=== PATIENT | female | born 1970 | race Caucasian/White ===

== ENCOUNTER 2022-09-21 19:27 | Emergency (ER) | payer BC, SELFPAY ==
[2022-09-21 19:28] VITALS: BP 170/92; PULSE 61; RESP 18; TEMP 36.4; O2SAT 100; BMI 24.7
--- NOTE | 2022-09-21 22:13 | CT_ITS ---
INDICATION: RIGHT flank pain EXAMINATION: CT ABDOMEN AND PELVIS WITHOUT CONTRAST TECHNIQUE: Helically acquired images were obtained of the abdomen and pelvis without oral or IV contrast. A radiation dose optimization technique was used for this scan. IV Contrast dosage and agent: None. Oral contrast: None. COMPARISON: None. FINDINGS: LOWER CHEST: Lung bases are clear. No cardiomegaly. Small pericardial effusion. LIVER: Homogeneous. No focal mass. GALLBLADDER AND BILIARY TREE: No calcified gallstones. No gallbladder distension or wall edema. No intra- or extrahepatic biliary ductal dilation. PANCREAS: No focal cystic or solid mass. SPLEEN: Normal size without focal cystic or solid mass. ADRENAL GLANDS: No nodules. KIDNEYS AND URETERS: Normal renal size and position. No hydronephrosis. No nephrolithiasis. No abnormal perirenal fluid stranding. No ureteral stone identified. PERITONEUM: No ascites or free air. No other fluid collection. BOWEL: Small hiatal hernia associated with gastric sleeve surgery. No bowel obstruction. Large degree of retained stool throughout the colon. No rectal distention. No bowel wall thickening or focal inflammatory changes. Normal appendix. LYMPH NODES: No enlarged mesenteric or retroperitoneal lymph nodes. VESSELS: Aorta is non-dilated. Scattered calcified mural plaque. URINARY BLADDER: Unremarkable. No gas or stone. REPRODUCTIVE ORGANS: No pelvic masses. ABDOMINAL WALL: No discrete abdominal or pelvic wall hernia. BONES: No lytic or blastic abnormality. Mild lumbar spine degenerative disc disease changes. No acute lumbar spine or pelvic osseous injury. CT/Abdomen/Pelvis without Cont IMPRESSION: No appendicitis. Postoperative changes of the bowel. Correlate for constipation. Small pericardial effusion. Electronically Signed: Joni Prakash MD at 22:56 EDT ,
--- NOTE | 2022-09-21 22:22 | EX.ED.DYSGE1 ---
HPI History of Present Illness Chief Complaint: Flank Pain Informant: patient Onset/Context/Timing Onset: Days Current Severity: Mild Maximum Severity: Moderate Narrative Narrative: Patient presents with 4-day history of right flank pain. She points to the right mid abdomen and describing her area of constant pain and states that will occasionally radiate around to the right CVA region. She denies urinary symptoms. No nausea or vomiting. No change in the pain with food. She was seen by her PCP today and had a urine in the office that was negative. PFSH PFSH Medical History Depression Hypertension Home Medications escitalopram oxalate 20 mg tablet 10 mg PO DAILY 09/21/22 [History Last Taken Unknown] lisinopril 30 mg tablet 15 mg PO DAILY 09/21/22 [History Last Taken Unknown] Allergy/AdvReac Type Severity Reaction Status Date / Time Opioids - Morphine Analogues Allergy Intermediate unknown Verified 09/21/22 19:29 Penicillins Allergy Intermediate unknown Verified 09/21/22 19:29 Surgical History H/O gastric sleeve H/O: hysterectomy Social History Smoking Status: Never smoker ROS ROS ED Constitutional Constitutional ED: Denies chills or fever(s) Eyes Eyes: Denies change in vision or discharge from eye(s) ENT ENT ED: Denies discharge from eye(s), rhinorrhea or sore throat Cardiovascular Cardiovascular: Denies chest pain or palpitations Respiratory/Chest Respiratory/Chest: Denies cough or dyspnea Gastrointestinal Gastrointestinal: Reports abdominal pain; Denies diarrhea, nausea or vomiting Genitourinary Genitourinary ED: Denies difficulty urinating or dysuria Musculoskeletal Musculoskeletal: Reports back pain; Denies extremity pain Integumentary Denies Abrasions or rash Neurologic Neurologic: Denies headache(s) or weakness Psychiatric Psychiatric: Denies anxiety or depression Allergic/Immunologic Allergic/Immunologic ED: Denies lip swelling or urticaria EXAM Physical Exam Const Vital Signs: 09/21/22 19:28 Temperature 97.5 F L Temperature Source Temporal Pulse Rate 61 Respiratory Rate 18 Blood Pressure 170/92 H Blood Pressure Mean 118 Pulse Ox 100 Oxygen Delivery Method Room Air Positive well nourished and well developed General Appearance ED: well developed HEENT Reports normocephalic and head/scalp atraumatic Eyes PERRL and EOMs intact bilaterally Neck supple Chest Wall inspection of chest normal and palpation of chest normal Resp normal respiratory effort and clear to auscultation bilaterally Cardio regular rate and regular rhythm GI GI Narrative: Mild tender palpation of the mid right abdomen. No guarding or rebound. Active bowel sounds are noted throughout. Palpation: soft Back/Spine no CVA tenderness Extremity normal to inspection Neuro oriented x3 and no sensory deficits noted Sensorium / Orientation: alert Motor Exam: strength 5/5 throughout Psych mental status grossly normal Skin no rashes or lesions noted MDM MDM MDM Narrative Medical decision making narrative: Patient declined any pain medication here. Urinalysis had been checked in her doctor's office and was normal. Labwork obtained to evaluate for leukocytosis, anemia, and electrolyte derangement. CT flank obtained to evaluate for possible appendicitis versus kidney stone versus cholecystitis. Lab Data Attestation: I reviewed the patient's lab results. Labs: Laboratory Results - last 24 hr 09/21/22 09/21/22 22:22 22:22 WBC 4.7 RBC 4.51 Hgb 13.8 Hct 41.4 MCV 91.8 MCH 30.6 MCHC 33.3 RDW Std Deviation 42.1 RDW Coeff of Ashwin 12.5 Plt Count 159 MPV 10.4 Immature Gran % (Auto) 0.200 Neut % (Auto) 42.3 L Lymph % (Auto) 41.9 H [place] % (Auto) 9.6 Eos % (Auto) 5.1 H Baso % (Auto) 0.9 Absolute Neuts (auto) 2.0 Absolute Lymphs (auto) 1.97 Nucleated RBC % 0 Sodium 138 Potassium 3.5 Chloride 107 Carbon Dioxide 29.0 Anion Gap 2 L BUN 10 Creatinine 0.63 Estim Creat Clear Calc 85.43 Est GFR (MDRD) Af Amer 126 Est GFR (MDRD) Non-Af 104 BUN/Creatinine Ratio 15.8 Glucose 83 Calcium 8.9 Total Bilirubin 0.40 Direct Bilirubin 0.16 AST 29 ALT 57 H Alkaline Phosphatase 58 Total Protein 6.9 Albumin 3.6 Globulin 3.3 Lipase 164 Radiography Diagnostic Testing: Clinical Impression(s) from Imaging Studies Abdomen/Pelvis CT 09/21/22 22:13 IMPRESSION: No appendicitis. Postoperative changes of the bowel. Correlate for constipation. Small pericardial effusion. Electronically Signed: Joni Prakash MD at 22:56 EDT , Treatment and Re-Evaluation :: CBC, BMP, LFTs are all unremarkable. CT flank reveals evidence of constipation with no evidence of appendicitis or gallbladder abnormality. Test results are discussed with the patient. I recommended getting MiraLAX to take at least twice a day to get her cleaned out. Return instructions were provided. Discharge Plan Triage Chief Complaint: Flank Pain ED Provider: Savannah Simmons Dx/Rx/DC Orders Clinical Impression: Abdominal pain, Constipation Instructions: ED Abdominal Pain Unkn Cause Fem, ED Constipation (Adult) Prescriptions: No Action lisinopril 30 mg tablet 15 mg PO DAILY Label Comments: TAKE 1 TABLET BY MOUTH EVERY DAY escitalopram oxalate 20 mg tablet 10 mg PO DAILY Label Comments: TAKE 1 TABLET BY MOUTH EVERY DAY Primary Care Provider: Murphy Canchola Referrals: Murphy Canchola [[facility]] - 1 Week if not improving Disposition Disposition: Home, Self Care
[2022-09-21 22:29] LABS: Absolute Lymphocyte Count 1.97 X10^3/uL (0.83-4.51); Basophil# 0.04 X10^3/uL; Basophil% 0.9 % (0-1); Eosinophil# 0.24 X10^3/uL; Eosinophils% 5.1 % (0-5); Hematocrit 41.4 % (37-47); Hemoglobin 13.8 g/dL (12.0-15.0); Lymphocyte # 1.97 X10^3/ul (0.83-4.51); Lymphocyte % 41.9 % (19-41); Mean Corp Hgb Conc 33.3 g/dL (32-36); Mean Corpuscular Hgb 30.6 pg (27.0-32.0); Mean Corpuscular Volume 91.8 fL (81-99); Mean Platelet Vol. 10.4 fl (6.2-12.0); Monocyte# 0.45 X10^3/uL; Monocyte% 9.6 % (0-10); NRBC Flagged by Analyzer 0 % (0-5); Neutrophil # 1.99 X10^3/uL (2.7-7.7); Neutrophil % 42.3 % (47-70); Platelet Count 159 K/mm3 (150-450); RBC Distribution Width CV 12.5 % (11.6-14.6); RBC Distribution Width SD 42.1 fl (35.1-43.9); Red Blood Count 4.51 M/mm3 (4.2-5.4); White Blood Count 4.7 K/mm3 (4.4-11.0)
[2022-09-21 22:45] LABS: AST(SGOT) 29 U/L (15-37); Alanine Aminotransfer ALT/SGPT 57 U/L (13-56); Albumin, Serum 3.6 g/dL (3.2-5.0); Alkaline Phosphatase 58 U/L (45-117); Anion Gap 2 (5-15); BUN 10 mg/dL (7-18); BUN/Creat Ratio 15.8 RATIO (10-20); Bilirubin, Direct 0.16 mg/dL (0.00-0.30); Calcium,Total 8.9 mg/dL (8.5-10.1); Chloride 107 mmol/L (98-107); Creatinine, Serum 0.63 mg/dL (0.55-1.02); EST Glomerular Filtration Rate 104 mL/min (>60); Est Glom Filt Rate - Afr Amer 126 mL/min (>60); Estimated Creatinine Clearance 85.43 ml/min; Globulin 3.3 g/dL (2.2-4.2); Glucose 83 mg/dL (74-106); Lipase 164 U/L (73-393); Potassium 3.5 mmol/L (3.5-5.1); Protein, Total 6.9 g/dL (6.4-8.2); Sodium Level 138 mmol/L (136-145)
== END 2022-09-21 23:22 | disposition home or self-care (01) ==
PROVIDERS: Emergency Provider Emergency Medicine; PCP Family Medicine; Visit Provider Emergency Medicine
DX: R10.9 Unspecified abdominal pain (principal); K59.00 Constipation, unspecified; I10 Essential (primary) hypertension; F32.A Depression, unspecified
CPT/HCPCS: 74176; 80048; 80076; 83690; 85025; 99282; A4216